=== PATIENT | female | born 2005 | race Caucasian/White ===

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

== ENCOUNTER 2024-03-05 15:35 | Emergency (ER) | payer OTHER ==
[~2024-03-05] VITALS: Ht 170.2 cm; Wt 59.1 kg
[2024-03-05 15:42] VITALS: TEMP 98.5
[2024-03-05 18:30] VITALS: BP 115/68; PULSE 65
== END 2024-03-05 18:38 | disposition home or self-care (01) ==
LOC: COL.ER 15:35
PROVIDERS: Physician Assistant
DX: R53.81 Other malaise (principal); R53.83 Other fatigue; Z87.891 Personal history of nicotine dependence